=== PATIENT | female | born 1990 | race American Indian/Alaskan Native ===

== ENCOUNTER 2016-09-30 09:51 | Emergency (ER) | payer SELFPAY ==
[2016-09-30 10:00] VITALS: BP 123/89
--- NOTE | 2016-10-06 22:15 | ED Elopement Review ---
ED Pt Elopement review - Call Back decision Pt Call Back Decision: No action required
== END 2016-09-30 12:40 | disposition left against medical advice (07) ==
LOC: ED 09:51
DX: R07.9 Chest pain, unspecified (principal); R04.2 Hemoptysis; Z53.21 Procedure and treatment not carried out due to patient leaving prior to being seen by health care provider

== ENCOUNTER 2019-06-19 10:48 | Emergency (ER) | payer SELFPAY ==
[2019-06-19 11:02] VITALS: BP 129/81
--- NOTE | 2019-06-19 11:54 | XRay Report ---
LEFT WRIST 4 VIEWS INDICATION / CLINICAL INFORMATION: fall, left wrist pain COMPARISON: None available. FINDINGS: BONES and JOINT(S): No acute fracture or subluxation. No significant arthritis. SOFT TISSUES: No significant abnormality. ADDITIONAL FINDINGS: None. IMPRESSION: 1. No acute findings. Signer Name: Willard Esqueda MD Signed: 06/19/2019 11:50 AM Workstation Name: [id number]
--- NOTE | 2019-06-19 11:55 | XRay Report ---
CHEST 1 VIEW 06/19/2019 11:12 AM INDICATION / CLINICAL INFORMATION: Chest Pain. COMPARISON: None available. FINDINGS: SUPPORT DEVICES: None. HEART / MEDIASTINUM: No significant abnormality. LUNGS / PLEURA: No significant pulmonary or pleural abnormality. No pneumothorax. ADDITIONAL FINDINGS: No significant additional findings. IMPRESSION: 1. No acute abnormality of the chest. Signer Name: Willard Esqueda MD Signed: 06/19/2019 11:50 AM Workstation Name: [email or web address]
--- NOTE | 2019-06-19 12:51 | Emergency Department Report ---
ED Upper Extremity Inj HPI - General Chief Complaint: Extremity Injury, Upper Stated Complaint: CHEST PAIN/LFT WRIST POSS BROKEN Time Seen by Provider: 06/19/19 12:46 Source: patient Mode of arrival: Ambulatory Limitations: No Limitations - History of Present Illness Initial Comments: Patient is a 28-year-old -[place] female comes to the ER complaining of left wrist pain after falling on the stairs yesterday. She states that she had an episode of palpitations and she lost her balance and fell. Patient states she has a history of palpitations going back many years and at one point she was on medications for it. She denies any chest pain or shortness of breath. She states she feels like her wrist is popping in and out of meds while she comes to the ER. She is on no home medications. She has no primary care or heart doctor. X-rays noted as ordered by LONNIE in triage. - Related Data Allergies Allergy/AdvReac Type Severity Reaction Status Date / Time No Known Allergies Allergy Unverified 12/15/15 11:22 ED Review of Systems ROS: Stated complaint: CHEST PAIN/LFT WRIST POSS BROKEN Other details as noted in HPI Comment: All other systems reviewed and negative ED Past Medical Hx - Past Medical History Previous Medical History?: Yes Hx Asthma: Yes Additional medical history: PALPITATIONS MANY YEARS AGO - Surgical History Past Surgical History?: No Additional Surgical History: one vaginal dilivery, Left side lypoma removed - Family History Family history: no significant - Social History Smoking Status: Never Smoker Substance Use Type: None ED Physical Exam - General Limitations: No Limitations General appearance: alert, in no apparent distress - Head Head exam: Present: atraumatic, normocephalic - Eye Eye exam: Present: normal appearance - ENT ENT exam: Present: mucous membranes moist - Neck Neck exam: Present: normal inspection - Respiratory Respiratory exam: Present: normal lung sounds bilaterally. Absent: respiratory distress - Cardiovascular Cardiovascular Exam: Present: regular rate, normal rhythm. Absent: systolic murmur, diastolic murmur, rubs, gallop - GI/Abdominal GI/Abdominal exam: Present: soft, normal bowel sounds - Extremities Exam Extremities exam: Present: normal inspection - Back Exam Back exam: Present: normal inspection - Neurological Exam Neurological exam: Present: alert, oriented X3 - Psychiatric Psychiatric exam: Present: normal affect, normal mood - Skin Skin exam: Present: warm, dry, intact, normal color. Absent: rash ED Course Vital Signs 06/19/19 10:59 Temperature 98.9 F Pulse Rate 100 H Respiratory 18 Rate Blood Pressure 129/81 O2 Sat by Pulse 98 Oximetry ED Medical Decision Making - EKG Data EKG shows normal: sinus rhythm Rate: normal - EKG Data When compared to previous EKG there are: no significant change Interpretation: no acute changes - Radiology Data Radiology results: report reviewed, image reviewed NEG - Medical Decision Making X-ray noted to be normal. Twelve-lead EKG normal Patient has full range of motion. And she is neurovascularly intact. She is ambulatory and in no acute distress. Vital signs are stable she denies any issues with palpitations or chest pain at the current time. We have had a long discussion about her need to follow-up with a kitchen cleaner on a routine basis. She is being referred to Dr. Aldrich for her wrist should she persistent having problems. Patient verbalizes understanding of discharge plan of care Vital Signs 06/19/19 10:59 Temperature 98.9 F Pulse Rate 100 H Respiratory 18 Rate Blood Pressure 129/81 O2 Sat by Pulse 98 Oximetry - Differential Diagnosis Rule out fracture Critical care attestation.: If time is entered above; I have spent that time in minutes in the direct care of this critically ill patient, excluding procedure time. ED Disposition Clinical Impression: Wrist pain, Palpitation Disposition: - TO HOME OR SELFCARE Is pt being admited?: No Does the pt Need Aspirin: No Condition: Stable Instructions: Wrist Injury (ED) Additional Instructions: ICE WRIST FOLLOW UP WITH PCP/HEART AND ORTHO MD WE DISCUSSED REFERRALS BELOW Referrals: BRANDIE ALDRICH MD [Staff Physician] - 3-5 Days MAX DORADO MD [Staff Physician] - 3-5 Days KENA LUO MD [Staff Physician] - 3-5 Days Time of Disposition: 12:50
== END 2019-06-19 13:03 | disposition home or self-care (01) ==
LOC: ED 10:48
DX: M25.532 Pain in left wrist (principal); R00.2 Palpitations; J45.909 Unspecified asthma, uncomplicated; W10.9XXA Fall (on) (from) unspecified stairs and steps, initial encounter; Y93.89 Activity, other specified; Y92.89 Other specified places as the place of occurrence of the external cause; Y99.8 Other external cause status; Z98.890 Other specified postprocedural states
CPT/HCPCS: 71045; 93005; 93010; 99283